=== PATIENT | female | born 1955 | race Caucasian/White ===

== ENCOUNTER 2016-12-20 13:53 | Emergency (ER) | payer BC ==
[~2016-12-20] VITALS: Ht 185.4 cm; Wt 76.2 kg
--- NOTE | ~2016-12-20 | CR94 ---
[facility]. [facility] A Service of [facility] RADIOLOGY TEXT RESULTS PATIENT: ALBANIA SOMERS LOCATION: SED : 55 UNIT #: [id number] AGE: [address]: Nicky Montero SEX: F ORDER DR: [id number] [address] [id number] E MR#: [id number] Acc #: [id number] NAME: ALBANIA SOMERS. : 1955 SEX: F STUDY DATE/TIME: 12/20/2016 14:41 UNIT: SED ROOM: STUDY DESCRIPTION: CR Elbow Min 3 Views Rt Attending Physician: Nicky Montero Pa-C Ordering Physician: Nicky Montero Pa-C Primary Care Physician: Gerardo Epperson M.D. MEDICAL IMAGING REPORT This report is preliminary unless electronic signature is present. EXAM Right elbow series, 12/20/2016 COMPARISON None. HISTORY Patient fell on right elbow last night. Pain. FINDINGS 3 views of the right elbow were obtained. Moderate joint effusion is noted without any obvious discernible acute displaced fracture. There is a probably occult injury. Based on this age group the common sites of occult injury is the radial head and the supracondylar fracture of the distal humerus. No dislocation. Dictated by... Deysi Sam M.D. THIS IS AN ELECTRONICALLY VERIFIED REPORT Deysi Sam M.D. at 12/21/2016 7:32 PM CPR/ljd TD: 12/21/2016 00:25 JOB #: [id number] MEDICAL IMAGING REPORT Page 1 of 1
[~2016-12-20 13:53] MED LIST: ADVAIR 2501 DISK W/D PO; NORCO 10-325 TA1 TAB PO; PREMARIN PO; PRILOSEC PO; SPIRIVA18 MCG INH; WELLBUTRIN PO; ZOLOFT50 MG PO; ZYRTEC-D T1 TAB.SR . PO
[2016-12-20] MEDS ORDERED: PROMETHAZINE W118 M1 (13:59)
[2016-12-20] MEDS ORDERED: AUGMENTIN (13:59)
== END 2016-12-20 15:50 | disposition home or self-care (01) ==
LOC: SED 13:53
DX: S52.121A Displaced fracture of head of right radius, initial encounter for closed fracture (principal); S42.411A Displaced simple supracondylar fracture without intercondylar fracture of right humerus, initial encounter for closed fracture; F17.210 Nicotine dependence, cigarettes, uncomplicated; Z79.899 Other long term (current) drug therapy; W01.0XXA Fall on same level from slipping, tripping and stumbling without subsequent striking against object, initial encounter; Y92.009 Unspecified place in unspecified non-institutional (private) residence as the place of occurrence of the external cause
CPT/HCPCS: 73080; 99283